=== PATIENT | male | born 2000 | race Caucasian/White ===

== ENCOUNTER 2023-04-24 15:45 | Inpatient (IN) ==
[2023-04-24] MEDS ORDERED: LORazepam 1 MG TAB SL STA (16:39)
[2023-04-24 16:40] LABS: Appearance Urine Clear (Clear); Bilirubin Urine Negative (Negative); Blood Urine Negative (Negative); Color Urine Yellow; Glucose Urine UA Negative (Negative); Ketones Urine Negative (Negative); Leukocyte Esterase Urine Negative (Negative); Nitrite Urine Negative (Negative); Protein Urine Negative (Negative); Specific Gravity Urine 1.018 (1.000-1.030); Urobilinogen Urine Negative (Negative)
--- NOTE | 2023-04-24 16:47 | Emergency Department Note ---
History of Present Illness General Chief complaint: Mental Health Evaluation Stated complaint: MHE, SUICIDAL + HOMICIDAL THOUGHTS/PLANS Time Seen by Provider: 04/24/23 16:07 History of Present Illness Provider complaint: Mental health evaluation 23-year-old male presents emergency department for mental health evaluation. 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 Patient states he has a history of schizoaffective disease and has been having tactile visual hallucinations to cut himself and others. Patient is requesting medications for "hallucinations" Home Medications Medication Instructions Recorded Confirmed Type bupropion HCl 75 mg tablet 75 mg PO DAILY 04/24/23 04/24/23 History mirtazapine 30 mg tablet 30 mg PO HS 04/24/23 04/24/23 History olanzapine 10 mg tablet (Zyprexa) 10 mg PO DAILY 04/24/23 04/24/23 History Allergies Allergy/AdvReac Type Severity Reaction Status Date / Time divalproex sodium Allergy Severe Verified 04/24/23 19:42 [facility] Past Med/Surg History Medical History (Updated 04/24/23 @ 20:01 by Girma Craig MD) Schizoaffective disorder Surgical History (Updated 04/24/23 @ 19:43 by Olinda Cortes PA-C) History of nasal surgery Family History (Updated 04/24/23 @ 19:43 by Olinda Cortes PA-C) Father Mental health disorder Mother Thyroid disorder Social History Smoking Status: Current every day smoker Feels Safe at Home: Yes Physical Exam Vital Signs Vital Signs - 24 hr 04/24/23 15:55 04/24/23 18:00 Temperature 36.8 C Temperature Source Temporal Artery Scan Pulse Rate 92 H Pulse Rate [Finger] 88 Respiratory Rate 20 18 Respiratory Effort / Characteristics Non-Labored Spontaneous Respiratory Depth Normal Respiratory Pattern Regular Blood Pressure 128/88 Blood Pressure [Right Arm] 136/63 Blood Pressure Mean 101 Blood Pressure Mean [Right Arm] 87 Pulse Oximetry 98 97 Oxygen Delivery Method Room Air Room Air Sepsis Recent Fever Within 48 Hours No Sepsis New/Unexplained Change in Mental Status No Sepsis Action Taken by Nursing No Action Required Physical Exam HENT: Exam performed. - Head: Normocephalic and atraumatic. EYES: Conjunctivae and EOM are normal. Right eye exhibits no discharge. Left eye exhibits no discharge. No scleral icterus. NECK: Normal range of motion. Neck supple. No JVD present. CV: Normal rate, regular rhythm, normal heart sounds and intact distal pulses. There is no peripheral edema. Palpable radial pulses bue. PULM/CHEST: Effort normal and breath sounds normal. No respiratory distress. No stridor. no wheezes. no rales. ABD: The abdomen is soft. There is no tenderness. NEURO: Motor and sensation grossly intact. SKIN: Skin is warm and dry. He is not diaphoretic. PSYCH: Bizarre affect. Suicidal ideation. Course Course 160: The patient was evaluated in room A5. A complete history and physical exam was performed 184: Vital signs stable. Labs and imaging are within normal limits with the exception of the patient being positive for COVID. Discussed case with Guillermina senior case manager and the patient is requesting inpatient psychiatric help. No psychiatric facility will admit the patient given he is COVID-positive and the patient cannot go back to [facility] being COVID-positive. Patient will be admitted to this facility medically for psychiatric evaluation. Administered Medications Discontinued Medications Lorazepam (Lorazepam 1 Mg Tab) 1 mg SL NOW STA Stop: 04/24/23 16:40 Last Admin: 04/24/23 17:38 Dose: 1 mg Documented By: NORA Medical Decision Making Laboratory Data Attestation: I reviewed the patient's lab results. 04/24/23 16:44 04/24/23 16:44 Lab Results 04/24/23 04/24/23 04/24/23 Range/Units 16:25 16:44 17:35 WBC 5.93 (4.8-10.8) K/ul RBC 4.98 (4.70-6.10) M/uL Hgb 16.3 (14.0-18.0) g/dl Hct 46.4 (42.0-52.0) % MCV 93.2 (80.0-100.0) fL MCH 32.7 (25.0-34.0) pg MCHC 35.1 (32.0-36.0) g/dL RDW Std Deviation 36.8 (36.4-46.3) fL RDW Coeff of [place] 10.8 L (11.5-14.5) % Plt Count 196 (130-400) K/uL MPV 8.9 L (9.4-12.4) fL Immature Gran % (Auto) 0.2 % Neut % (Auto) 68.2 % Lymph % (Auto) 24.1 % [place] % (Auto) 6.7 % Eos % (Auto) 0.5 % Baso % (Auto) 0.3 % Neut # (Auto) 4.04 (1.40-6.50) K/uL Lymph # (Auto) 1.43 (1.20-3.40) K/uL [place] # (Auto) 0.40 (0.11-0.59) K/uL Eos # (Auto) 0.03 (0.00-0.50) K/uL Baso # (Auto) 0.02 (0.00-0.20) K/uL Immature Gran # (Auto) 0.01 (0.01-0.20) K/uL Sodium 139 (136-145) mmol/L Potassium 3.9 (3.5-5.1) mmol/L Chloride 103 (98-107) mmol/L Carbon Dioxide 27 (21-32) mmol/L Anion Gap 9 (3-11) BUN 14 (6-23) mg/dl Creatinine 0.81 (0.6-1.4) mg/dl Est Cr Clr Drug Dosing 163.7 ml/min Est GFR ( Amer) 145.2 ml/min Est GFR (Non-Af Amer) 125.3 ml/min BUN/Creatinine Ratio 17.3 (10-20) Glucose 111 H (70-99(Fasting)) mg/dl Calcium 9.7 (8.6-10.3) mg/dl Total Bilirubin 0.8 (0.2-1.0) mg/dl AST 37 (13-39) U/L ALT 73 H (7-52) U/L Alkaline Phosphatase 63 (34-104) U/L Total Protein 7.7 (6.0-8.3) gm/dl Albumin 4.9 (3.4-5.0) gm/dl Globulin 2.8 (2.5-4.0) gm/dl Albumin/Globulin Ratio 1.8 (0.9-2) TSH 2.797 (0.300-4.500) uIu/ml Urine Color Yellow Urine Appearance Clear (Clear) Urine pH 8.0 H (4.5-7.5) Ur Specific [place] 1.018 (1.000-1.030) Urine Protein Negative (Negative) Urine Glucose (UA) Negative (Negative) Urine Ketones Negative (Negative) Urine Blood Negative (Negative) Urine Nitrite Negative (Negative) Urine Bilirubin Negative (Negative) Urine Urobilinogen Negative (Negative) Ur Leukocyte Esterase Negative (Negative) Salicylates < 3.0 L (3.0-30) mg/dl Urine Opiates Screen Neg (Neg) Ur Methadone, Qual Neg (Neg) Acetaminophen < 3 L (10-30) ug/ml Urine Barbiturates Neg (Neg) Ur Phencyclidine (PCP) Neg (Neg) U Amphetamin/Meth Scrn Neg (Neg) MDMA (Ecstasy) Screen Neg (Neg) U Benzodiazepines Scrn Neg (Neg) Ur Cocaine Metabolite Neg (Neg) U Marijuana (THC) Screen Neg (Neg) Ethyl Alcohol mg/dL < 10.0 (<10.0) mg/dl SARS-CoV-2, RNA, NAAT POSITIVE A* (NEGATIVE) Imaging Data Attestation: I personally reviewed and interpreted this imaging study as follows: My Impression: CT head: No ICH Radiologist's Impression: Head CT 04/24/23 16:[address] DOSE: 625.8 mGy.cm HISTORY: Altered mental status. Hallucinations. TECHNIQUE: Multiaxial CT images of the head were performed without the use of intravenous contrast. Automated exposure control was utilized for this study. A dose lowering technique was utilized adhering to the principles of ALARA. Comparison: None. Findings: The paranasal sinuses and mastoid air cells are clear. The calvarium and skull base are intact. The ventricles and sulci are within normal limits. There is no mass, hematoma, midline shift, or acute infarct. Impression: No acute intracranial abnormality. ACT 112: Negative or not required by law. Electronically signed by: Fredi Cui M.D. 04/24/2023 5:22 PM [facility] Narrative Vital signs stable. Labs and imaging are within normal limits with the exception of the patient being positive for COVID. Discussed case with Guillermina senior case manager and the patient is requesting inpatient psychiatric help. No psychiatric facility will admit the patient given he is COVID-positive and the patient cannot go back to [facility] being COVID-positive. Patient will be admitted to this facility medically for psychiatric evaluation. Impression & Plan Schizoaffective disorder, Suicidal ideation, Hallucination, SARS-CoV-2 positive Discharge Plan Visit Data Chief Complaint: Mental Health Evaluation Stated Complaint: MHE, SUICIDAL + HOMICIDAL THOUGHTS/PLANS ED Provider: Girma Craig Discharge Problem: Schizoaffective disorder, Suicidal ideation, Hallucination, SARS-CoV-2 positive Patient Disposition: Admitted As Inpatient Forms Stand Alone Forms: [facility], Suicide Prevention Resources Prescriptions Prescriptions: No Action olanzapine [Zyprexa] 10 mg Tablet 10 mg PO DAILY mirtazapine 30 mg Tablet 30 mg PO HS bupropion HCl [Wellbutrin] 75 mg Tablet 75 mg PO DAILY Referrals Referrals: Louie Muro [Primary Care Provider] -
[2023-04-24 17:02] LABS: Basophils # (auto) 0.02 K/uL (0.00-0.20); Basophils % (auto) 0.3 %; Eosinophils # (auto) 0.03 K/uL (0.00-0.50); Eosinophils % (auto) 0.5 %; Hematocrit (blood only) 46.4 % (42.0-52.0); Hemoglobin 16.3 g/dl (14.0-18.0); Immature Granulocytes # (auto) 0.01 K/uL (0.01-0.20); Immature Granulocytes % (auto) 0.2 %; Lymphocytes # (auto) 1.43 K/uL (1.20-3.40); Lymphocytes % (auto) 24.1 %; Mean Corpuscular Hemoglobin 32.7 pg (25.0-34.0); Mean Corpuscular Hgb Conc 35.1 g/dL (32.0-36.0); Mean Corpuscular Volume 93.2 fL (80.0-100.0); Mean Platelet Volume 8.9 fL (9.4-12.4); Monocytes % (auto) 6.7 %; Neutrophils # (auto) 4.04 K/uL (1.40-6.50); Neutrophils % (auto) 68.2 %; Platelet Count 196 K/uL (130-400); RDW Coefficient of Variation 10.8 % (11.5-14.5); RDW Standard Deviation 36.8 fL (36.4-46.3); Red Blood Count 4.98 M/uL (4.70-6.10); White Blood Count 5.93 K/ul (4.8-10.8)
[2023-04-24 17:16] LABS: Amphetamines+Metham, Urine Neg (Neg); Barbiturates, Urine Neg (Neg); Benzodiazepine, Urine Neg (Neg); Cocaine, Urine Neg (Neg); MDMA (Ecstacy), Urine Neg (Neg); Marijuana, Urine Neg (Neg); Methadone, Urine Neg (Neg); Opiate, Urine Neg (Neg); Phencyclidine, Urine Neg (Neg)
[2023-04-24 17:21] LABS: Albumin Globulin Ratio 1.8 (0.9-2); Albumin Level 4.9 gm/dl (3.4-5.0); BUN Creatinine Ratio 17.3 (10-20); Bilirubin,Total 0.8 mg/dl (0.2-1.0); Calcium 9.7 mg/dl (8.6-10.3); Creatinine Clr Calc Pharmacy 163.7 ml/min; Est GFR (African American) 145.2 ml/min; Est GFR (Non-African American) 125.3 ml/min; Globulin 2.8 gm/dl (2.5-4.0); Potassium 3.9 mmol/L (3.5-5.1); Total Protein 7.7 gm/dl (6.0-8.3)
[2023-04-24 17:24] LABS: Acetaminophen < 3 ug/ml (10-30); Salicylate < 3.0 mg/dl (3.0-30)
--- NOTE | 2023-04-24 17:25 | CT Scan Report ---
HEAD CT NONCONTRAST CT DOSE: 625.8 mGy.cm HISTORY: Altered mental status. Hallucinations. TECHNIQUE: Multiaxial CT images of the head were performed without the use of intravenous contrast. A utomated exposure control was utilized for this study. A dose lowering technique was utilized adheri ng to the principles of ALARA. Comparison: None. Findings: The paranasal sinuses and mastoid air cells are clear. The calvarium and skull base are int act. The ventricles and sulci are within normal limits. There is no mass, hematoma, midline shift, or acute infarct. Impression: No acute intracranial abnormality. ACT 112: Negative or not required by law. Electronically signed by: Fredi Cui M.D. 04/24/2023 5:22 PM
[2023-04-24 17:35] LABS: Thyroid Stimulating Hormone 2.797 uIu/ml (0.300-4.500)
--- NOTE | 2023-04-24 19:56 | History & Physical Report ---
Date of Service April 24, 2023 Assessment & Plan (1) Schizoaffective disorder: (2) Suicidal ideation: (3) Hallucination: (4) SARS-CoV-2 positive: Plan This is a 23 yr old M who has a significant PMH of schizoaffective disorder who presents to ED secondary to suicidal ideation. Schizoaffective disorder Suicidal Ideation Hallucination Hallucinogenic abuse admit to medicine 2/ sars cov2 + consult psych continue home psych medications safe tray counselled on cessation of drug use Sars CoV2 + pt does not meet criteria for treatment supportive care isolation precautions anti-tussives Elevated LFT ALT 73 repeat in am. no alcohol abuse Tobacco abuse encourage cessation pt requests Nicorette Dispo: admit to medicine for isolation until MH placement can be established FULL CODE PCP: Pt is from [place], currently @ [facility] Pt was seen and examined in collaboration with Dr. Davenport, please see addendum A total of 52 was spent coordinating, documenting, and providing care for this patient excluding time spent in the performance of separately billed services. This included personally viewing all current laboratories and imaging studies, medication reconciliation, outpatient chart review, and discussion with specialists. History of Present Illness Chief Complaint: Suicidal ideation Primary Care Provider: [facility] This is a 23 yr old M who has a signifnicat PMH of schizoaffective disorder who presents to ED secondary to suicidal ideation. Currently patient is at [facility] recovery facility for hallucinogenic abuse. Patient had been in remission until about 1 month ago when he started using mushrooms that he got from a "dealer." He states he took a significant amount of mushrooms and is continuing to have psychedelic and hallucinogenic effects. He is hallucinating that he is cutting himself and then proceeds to do so. He last hurt himself about 1 month ago. He continues to get these hallucinations and therefore [facility] sent him over for further evaluation. He is aware that he needs mental health treatment. He does not complain of sinus congestion has been ongoing for the last several days. He denies any fever, chills, sweats, lightheadedness, dizziness, chest pain, shortness of breath, nausea, vomiting or abdominal pain. Upon mental health workup he did test positive for SARS-CoV-2. Due to positive COVID test he is unable to be placed to mental health facility and therefore will be admitted to medicine. Allergies Allergy/AdvReac Type Severity Reaction Status Date / Time divalproex sodium Allergy Severe Rash Verified 04/24/23 20:52 [From Depakote] Home Medications Medication Instructions Recorded Confirmed Type bupropion HCl 75 mg tablet 75 mg PO DAILY 04/24/23 04/24/23 History mirtazapine 30 mg tablet 30 mg PO HS 04/24/23 04/24/23 History olanzapine 10 mg tablet (Zyprexa) 10 mg PO DAILY 04/24/23 04/24/23 History Past Med/Surg History Medical History (Updated 04/24/23 @ 20:01 by Girma Craig MD) Schizoaffective disorder Surgical History (Updated 04/24/23 @ 19:43 by Olinda Cortes PA-C) History of nasal surgery Family History (Updated 04/24/23 @ 19:43 by Olinda Cortes PA-C) Father Mental health disorder Mother Thyroid disorder Social History Smoking Status: Current every day smoker Feels Safe at Home: Yes Review of Systems Review of Systems: All systems reviewed & are unremarkable except as noted in HPI & below Physical Exam Physical Exam: Constitutional: WD/WN, vitals as above, NAD, sitting up in bed, pleasant, conversing easily Head: Normocephalic, Atraumatic Eyes: PERRL, conjunctivae normal, anicteric sclerae ENMT: external ear and nose normal, oropharynx normal Neck: trachea midline, no thyromegaly normal visual inspection Respiratory: normal respiratory effort, lungs clear to auscultation, no wheeze, rales, rhonchi. Normal insp/exp effort, no accessory muscle use Cardiovascular: RRR, no murmur, no edema Chest: normal inspection of chest Musculoskeletal: no cyanosis or clubbing, extremities AROM x4 Skin: no rashes, warm and dry normal turgor Neurologic: no face palsy, no dysarthria and moves all extremities Psychiatric: A+Ox3, dysthymic effect Lymphatic: no cervical or axillary lymphadenopathy : deferred Results & Data Results & Data Vital Signs (Past 12 Hours) Vital Signs Temp Pulse Pulse Resp BP BP Pulse Ox 04/24/23 18:00 88 18 136/63 97 04/24/23 15:55 36.8 C 92 H 20 128/88 98 O2 Del Method 04/24/23 18:00 Room Air 04/24/23 15:55 Room Air Laboratory Results Short CBC 04/24/23 Range/Units 16:44 WBC 5.93 (4.8-10.8) K/ul Hgb 16.3 (14.0-18.0) g/dl Hct 46.4 (42.0-52.0) % Plt Count 196 (130-400) K/uL BMP 04/24/23 16:44 Sodium 139 Potassium 3.9 Chloride 103 Carbon Dioxide 27 BUN 14 Creatinine 0.81 Glucose 111 H Calcium 9.7 Liver Function 04/24/23 Range/Units 16:44 Total Bilirubin 0.8 (0.2-1.0) mg/dl AST 37 (13-39) U/L ALT 73 H (7-52) U/L Alkaline Phosphatase 63 (34-104) U/L Albumin 4.9 (3.4-5.0) gm/dl Urine 04/24/23 Range/Units 16:25 Urine Color Yellow Urine Appearance Clear (Clear) Urine pH 8.0 H (4.5-7.5) Ur Specific [place] 1.018 (1.000-1.030) Urine Protein Negative (Negative) Urine Glucose (UA) Negative (Negative) I have independently reviewed and interpreted patient's admitting labs including CBC, CMP, TSH, UA, drug screen. Diagnostic Findings Head CT 04/24/23 16:[address] DOSE: 625.8 mGy.cm HISTORY: Altered mental status. Hallucinations. TECHNIQUE: Multiaxial CT images of the head were performed without the use of intravenous contrast. Automated exposure control was utilized for this study. A dose lowering technique was utilized adhering to the principles of ALARA. Comparison: None. Findings: The paranasal sinuses and mastoid air cells are clear. The calvarium and skull base are intact. The ventricles and sulci are within normal limits. There is no mass, hematoma, midline shift, or acute infarct. Impression: No acute intracranial abnormality. ACT 112: Negative or not required by law. Electronically signed by: Fredi Cui M.D. 04/24/2023 5:22 PM Medications Administered Medication List Discontinued Medications Lorazepam (Lorazepam 1 Mg Tab) 1 mg SL NOW STA Stop: 04/24/23 16:40 Last Admin: 04/24/23 17:38 Dose: 1 mg Documented By: JAM Code Status & VTE Plan Code Status FULL CODE VTE Prophylaxis Plan VTE Prophylaxis will be ordered: Yes Supervising Physician Co-Signing Physician Notes I have seen and examined the patient and have discussed the case with the provider above. I agree with the assessment and plan as stated. 23 yo M with underlying schizoaffective disorder took mushrooms "from a drug dealer" approximately one month ago. He is still reporting hallucinations that are severe and involve suicidal ideations and visions of cutting others. He has a history of cutting in the past per his report. He is remorseful for taking the mushrooms and vows not to do that again. Nasal congestion for a few days, covid +. Physical as above. No covid treatment is needed. Consult psych for evaluation and disposition. Cont 11:1 and safe tray. Issac,
[2023-04-24] MEDS ORDERED: guaiFENesin/DEXTROM SYRUP 200MG/20MG 10ML UDC PO PRN (20:36)
[2023-04-24] MEDS ORDERED: ACETAMINOPHEN 325 MG TAB PO PRN (20:36)
[2023-04-24] MEDS ORDERED: NICOTINE POLACRILEX 2 MG GUM MT PRN (20:36)
[2023-04-24] MEDS: MIRTAZAPINE TAB 15 MG TAB PO SCH (21:19)
[2023-04-25 08:00] LABS: Hematocrit (blood only) 43.5 % (42.0-52.0); Hemoglobin 15.5 g/dl (14.0-18.0); Mean Corpuscular Hemoglobin 32.8 pg (25.0-34.0); Mean Corpuscular Hgb Conc 35.6 g/dL (32.0-36.0); Mean Platelet Volume 8.8 fL (9.4-12.4); Platelet Count 167 K/uL (130-400); RDW Coefficient of Variation 10.9 % (11.5-14.5); RDW Standard Deviation 37.2 fL (36.4-46.3); Red Blood Count 4.73 M/uL (4.70-6.10); White Blood Count 4.36 K/ul (4.8-10.8)
[2023-04-25 08:15] LABS: Albumin Globulin Ratio 1.7 (0.9-2); Albumin Level 4.2 gm/dl (3.4-5.0); Bilirubin,Total 1.2 mg/dl (0.2-1.0); Calcium 8.8 mg/dl (8.6-10.3); Creatinine Clr Calc Pharmacy 140.4 ml/min; Est GFR (African American) 131.9 ml/min; Est GFR (Non-African American) 113.8 ml/min; Globulin 2.5 gm/dl (2.5-4.0); Potassium 4.4 mmol/L (3.5-5.1); Total Protein 6.7 gm/dl (6.0-8.3)
[2023-04-25] MEDS: OLANZapine 10 MG TAB PO SCH (08:46)
[2023-04-25] MEDS: buPROPion HCl 75 MG TABLET PO SCH (08:46)
--- NOTE | 2023-04-25 11:51 | Psychiatric Consultation ---
Date of Consultation April 25, 2023 Impression / Recommendations Impression 23 y/o man with a history of schizoaffective disorder and hallucinogen use who presented with visual and tactile hallucinations of being cut. He says this makes him "think about" cutting himself, by which he means intrusive, repetitive, ego-dystonic thoughts, i.e. obsessions. He is currently experiencing mild auditory hallucinations and no other symptoms. He's very vague and unfocused with significant ambivalence and a range of philosophical preoccupations and pseudoprofundity. He was admitted based on the interpretation of his reports as reflecting suicidal thoughts, while in my opinion they are more consistent with obsessive fears. He clearly worsened after using hallucinogenic mushrooms. Given pt's significant improvement, he may not need to remain hospitalized for long. Substantial improvement on current medication regimen argues in favor of continuing it unchanged. Overall I spent a total of 134 minutes on the floor for this consultation assessment including review of chart records, review of test results, direct evaluation of the patient [id number], counseling the patient, medication education with the patient, risk assessment, discussion with the psychiatric liaison nurse, and documentation in the electronic health record. (1) Schizoaffective disorder: Plan Pt was admitted to the medical service in an isolation room due to positive SARS-CoV-2 screen where he will be followed by the psychiatric consultation service. * continue bupropion 75 mg QAM (reportedly used primarily for AM drowsiness) * continue mirtazapine 30 mg QHS (reportedly primarily for sleep) * continue olanzapine 10 mg, move to HS dosing * psychiatry will continue to follow pt while on the medical service Psych History Identifying Data GISSELLE WATKINS is a 23-year-old M with a history of schizoaffective disorder, admitted on 04/24/2023 for psychosis. Consult is by the hospitalist service for "suicidal ideations". Chief Complaint "I feel so much better". History of Present Illness As part of a thorough review of the available medical records, I have read and and incorporated into my assessment the following note by the ED physician: "23-year-old male presents emergency department for mental health evaluation. Patient is currently at [facility] rehab undergoing treatment for hallucinogen abuse. Patient states he has a history of schizoaffective disease and has been having tactile visual hallucinations to cut himself and others. Patient is requesting medications for "hallucinations"" the following note by the hospitalist: "This is a 23 yr old M who has a signifnicat PMH of schizoaffective disorder who presents to ED secondary to suicidal ideation. Currently patient is at [facility] recovery facility for hallucinogenic abuse. Patient had been in remission until about 1 month ago when he started using mushrooms that he got from a "dealer." He states he took a significant amount of mushrooms and is continuing to have psychedelic and hallucinogenic effects. He is hallucinating that he is cutting himself and then proceeds to do so. He last hurt himself about 1 month ago. He continues to get these hallucinations and therefore [facility] sent him over for further evaluation. He is aware that he needs mental health treatment. He does not complain of sinus congestion has been ongoing for the last several days. He denies any fever, chills, sweats, lightheadedness, dizziness, chest pain, shortness of breath, nausea, vomiting or abdominal pain. Upon mental health workup he did test positive for SARS-CoV-2. Due to positive COVID test he is unable to be placed to mental health facility and therefore will be admitted to medicine." the following note by the ED psychiatric rn case management: "Patient states he is currently inpatient at [facility] due to hallucinogen use. He stated he ate mushrooms a month ago and has been hallucinating off and on since. Patient reports his drugs of choice are THC and mushrooms. Patient states he has been having hallucinations of cutting himself and states he can feel the "cuts" in his neck. He reports he also projects the urge to cut himself into cutting others. Patient reports having suicide attempts in the past. He states his father also had a suicide attempt when patient was 16, and that this caused him to "forget" much of his childhood. Patient has had at least two past inpatient treatment admissions. He is currently taking Remeron, Wellbutrin and Zyprexa. He states he takes the medications as prescribed. Patient is from [place], but was attending school at [facility] where he reports he was doing very well until he ingested the mushrooms. Patient reports a diagnosis of Schizoaffective disorder.He reports no known medical conditions." and the following note by the psychiatric liaison nurse: "Patient seen for initial consult, alert and oriented x 4 - pleasant and lying calmly in bed during assessment - patient's reporting does not completely line up, patient currently denies SI/HI - states he felt like cutting himself earlier but after a dose of ativan those feelings faded, denies hallucinations/delusions but also states he was seeing cuts on other people and that made him feel unsafe, patient states he was at [facility] for dual purpose of mental health treatment and rehab for hallucinogens - he states he was attending school in [place] at an [facility] for spiritual study but was asked to leave to tend to his mental health issues - after taking mushrooms again a month ago he decompensated further and his [place] to check patient into [facility], patient states he has a schizoaffective diagnosis and is able to name his medications - when asked about prior mental health inpatient stays he states "yes about a year ago in [place]" when asked what for he states "rehab" - he then explains that stay was related to "other drug abuses" but when pressed states "yeah like LSD and other hallucinogens. I'm obsessed with them and the insight they give me. But after this last trip I don't know if I want them anymore because I can't recover", does endorse a self-harm history of cutting - last done a month ago, denies access to guns and does agree he wants to return to [facility] once "cleared of covid and feeling better mentally", patient denies any acute ment al health needs at this time as he feels much better. He gave verbal permission to contact his mother." Review of the medical record reveals no previous or outside psychiatric records. Pt. carries diagnosis of schizoaffective disorder. Review of pertinent labs reveals they are noncontributory. A urine toxicology screen was negative for all tested substrates. BAL was <10 mg/dL. Presents with reports of tactile hallucinations of being cut and seeing cuts appear on his body. He adamantly denies that he has any suicidal thoughts and finds these experiences frightening. He has had non-suicidal cutting behavior in the past month, but says that spontaneously experiencing the feeling of being cut is frightening. He also reports that at times when he is preparing food using a knife he has "thoughts of cutting other people". These are very clearly ego-dystonic intrusive thoughts that he might for some reason do something like that. He actually refers to these thoughts as "obsessions". He has had numerous medication trials and reports that the current olanzapine is "working really well" and that "the voices are almost completely gone" for the first time in "a long time". Reports a somewhat peripatetic search for emotional peace and, possibly, spiritual enlightenment. He consulted a [employer]ian teach in [facility] who advised him to take his medication consistently and participate in psychotherapy. He move to [facility] in hopes of living in a [facility] there but was told he should work on his mental health and complete a college degree first. He found meditating to be boring so decided to use some psychedelic mushrooms with a friend, which led to very unpleasant hallucinations that were the reason for the admission to [facility] Pt's mother reports a goal of residential treatment in [place], with an admission to [facility] prior to that for "stabilization". Pt didn't like it there because it was chaotic and emphasizes how much he likes the large isolation room here. He says he'd like to stay here for at least a few weeks before considering next steps. I emphasized that such a plan would not be appropriate and that our goal would be discharge as soon as a safe plan can be constructed. He several times asked me for various bits of life advice despite my repeatedly reminding him that long-term changes are appropriately the province of outpatient treatment. He is not very interested in the [place] program and wonders if perhaps he should return to [place] with his parents. Past Psychiatric History Previous Psych Admissions: at least 3 previous admisstions Allergies Allergy/AdvReac Type Severity Reaction Status Date / Time divalproex sodium Allergy Severe Rash Verified 04/24/23 20:52 [From Depakote] Home Medications Medication Instructions Recorded Confirmed Type bupropion HCl 75 mg tablet 75 mg PO DAILY 04/24/23 04/24/23 History mirtazapine 30 mg tablet 30 mg PO HS 04/24/23 04/24/23 History olanzapine 10 mg tablet (Zyprexa) 10 mg PO DAILY 04/24/23 04/24/23 History Patient History Medical History (Updated 04/25/23 @ 19:54 by Marcello Mari MD) Suicidal ideation Schizoaffective disorder Surgical History History of nasal surgery Family History Father Mental health disorder Mother Thyroid disorder Social History Smoking Status: Current every day smoker Tobacco Type: Cigarettes Second Hand Exposure: No; Do You Dip or Chew Tobacco: No; Tobacco Cessation Education Requested by Patient: Yes Hx Alcohol Use: No Hx Substance Use: Yes Last Used Substance Other:: one month ago Substance Use Type Other:: mushrooms Preferred Language: Slovak Communication Ability: Effective Chinese Language Professor Required: No Beliefs That Will Affect Care: Moravian Moravian Beliefs: Pt would like a chaplan to come see him throughout his stay and Spiritual Spiritual Healthcare Practices: [employer] Current Living Situation: Alone and Other Current Living Situation Comment: [facility] - pt states he does not feel safe there Other Information That Helps Us Care for You: No Feels Safe at Home: No Is there a partner from a previous relationship who is making you feel unsafe now?: No Any Concerns about Your Family Situation: No Would You Like to Speak to Someone About Your Situation: No Safety Concerns: Feels Safe At This Time Assistive Devices: None Physical Exam Psychiatric: Orientation: alert, oriented to person, oriented to place, oriented to time and cooperative (but very vague) Apperance: appropriately dressed, appropriately groomed and appeared stated age Eye Contact: good eye contact Motor Behavior: no abnormal motor movements Affect: + blunted affect Mood: + anxious mood and + dysphoric mood Thought Process: + tangential thought process and + looseness of associations; + thought process not linear or logical Thought Content: + obsessions; no hopelessness Suicidal Thoughts: denies suicidal thoughts, denies suicidal plan and denies suicidal intent Homicidal Thoughts: denies homicidal thoughts Hallucinations: + auditory hallucinations, + visual hallucinations and + tactile hallucinations Cognition: recent memory grossly intact, remote memory grossly intact and language grossly intact; + attention not intact Estimated Intelligence: consistent with education level Insight: + poor insight Judgment: + limited judgement Vital Signs (Past 24 Hours): Last Vital Signs Temp 36.9 C 04/24/23 21:14 Pulse 78 04/25/23 06:26 Resp 16 04/25/23 06:26 BP 119/72 04/25/23 06:26 Pulse Ox 95 04/25/23 06:26 O2 Del Method Room Air 04/25/23 06:26 Exam Statement: Physical exams were performed in the ED and by the admitting hospitalist for the purposes of medical clearance. I accept those physicals as correct and adequate and have incorporated that information into my assessment. Review of Systems Psychiatric: + auditory hallucinations, + visual hallucinations, + tactile hallucinations and + substance abuse; no hopelessness, no suicidal ideation and no homicidal ideation Results & Data (PSY) Medications Administered Bupropion HCl (Bupropion Hcl 75 Mg Tablet) 75 mg PO DAILY SELINA Stop: 05/25/23 08:59 Last Admin: 04/25/23 08:46 Dose: 75 mg Documented By: NORA Mirtazapine (Mirtazapine Tab 15 Mg Tab) 30 mg PO HS [facility] Stop: 05/24/23 20:59 Last Admin: 04/24/23 21:19 Dose: 30 mg Documented By: HARVEY Olanzapine (Olanzapine 10 Mg Tab) 10 mg PO DAILY SELINA Stop: 05/25/23 08:59 Last Admin: 04/25/23 08:46 Dose: 10 mg Documented By: NORA Coding Level of Care Code 88169 [facility] Intl Hosp Care Lvl 3 Diagnoses Schizoaffective disorder F25.9 Time Spent (min) 134
--- NOTE | 2023-04-25 13:52 | Hospitalist Progress Note ---
Date of Service April 25, 2023 Assessment & Plan (1) Schizoaffective disorder: (2) Suicidal ideation: (3) Hallucination: (4) SARS-CoV-2 positive: Plan This is a 23 yr old M who has a significant PMH of schizoaffective disorder who presents to ED secondary to suicidal ideation. Schizoaffective disorder Hallucination Hallucinogenic abuse Patient presented from [facility] with hallucination History of use of psychedelic mushrooms. CT head on admissionno acute finding. Psychiatry on board; appreciate recommendation. Patient currently on Wellbutrin, mirtazapine and olanzapine Sars CoV2 + Patient was found to have COVID-19 infection Does not require any supplemental oxygen. Monitor for now. Tobacco abuse encourage cessation pt requests [facility] Dispo: Patient is medically stable for transfer. Appreciate psychiatry input. FULL CODE PCP: Pt is from [place] Discussed with Patient's mother over the phone. Updated, and answered questions/queries. Please note the above document was generated using voice recognition software. It may contain grammatical, syntax or spelling errors. Any formal questions or concerns about the content, text or information contained within the body of this dictation should be directly addressed to the provider for clarification Admission and Anticipated Discharge Date Admission Date: April 24, 2023 Subjective Patient seen and examined at bedside. He is lying in the bed comfortably; not in any distress. He denies fever, chills, shortness of breath or chest pain. Review of Systems Review of Systems: All systems reviewed & are unremarkable except as noted in Subjective Physical Exam Physical Exam: Constitutional: WD/WN, vitals as above, NAD, sitting up in bed, pleasant, conversing easily Respiratory: normal respiratory effort, lungs clear to auscultation, no wheeze, rales, rhonchi. Normal insp/exp effort, no accessory muscle use Cardiovascular: RRR, no murmur, no edema Vessels: no JVD or carotid bruit Chest: normal inspection of chest Abdomen: normal bowel sounds, soft, nontender, no hepatosplenomegaly Musculoskeletal: no cyanosis or clubbing, extremities motor strength 5/5 Skin: no rashes, warm and dry normal turgor Results & Data Results & Data Vital Signs (Past 12 Hours) Vital Signs Pulse Resp BP Pulse Ox O2 Del Method 04/25/23 06:26 78 16 119/72 95 Room Air
[2023-04-25] MEDS: MIRTAZAPINE TAB 15 MG TAB PO SCH (20:18)
[2023-04-26] MEDS: OLANZapine 10 MG TAB PO SCH (09:41)
[2023-04-26] MEDS: buPROPion HCl 75 MG TABLET PO SCH (09:41)
[2023-04-26] MEDS: FLUTICASONE PROPIONATE NA SPR 16 GM BTL PRN (12:51)
[2023-04-26] MEDS ORDERED: SODIUM CHLORIDE 0.65% NA SOLN 45 ML (OCEAN) ONE (14:39)
--- NOTE | 2023-04-26 14:42 | Hospitalist Progress Note ---
Date of Service April 26, 2023 Assessment & Plan (1) Schizoaffective disorder: (2) Suicidal ideation: (3) Hallucination: (4) SARS-CoV-2 positive: Plan This is a 23 yr old M who has a significant PMH of schizoaffective disorder who presents to ED secondary to suicidal ideation. Schizoaffective disorder Hallucination Hallucinogenic abuse Patient presented from [facility] with hallucination History of use of psychedelic mushrooms. CT head on admissionno acute finding. Patient currently on Wellbutrin, mirtazapine and olanzapine. Psychiatry recommended to continue same. Sars CoV2 + Patient was found to have COVID-19 infection Does not require any supplemental oxygen. Monitor for now. Tobacco abuse encourage cessation pt requests [facility] Dispo: Patient is medically stable for transfer. Appreciate psychiatry input. FULL CODE PCP: Pt is from [place] DVT: ambulation Discussed with Patient's mother over the phone on April 25, 2023. Updated, and answered questions/queries. Please note the above document was generated using voice recognition software. It may contain grammatical, syntax or spelling errors. Any formal questions or concerns about the content, text or information contained within the body of this dictation should be directly addressed to the provider for clarification Admission and Anticipated Discharge Date Admission Date: April 24, 2023 Subjective Patient seen and examined at bedside. Comfortable; not in distress. Reported nasal congestion. Denies fever, chills, chest pain, shortness of breath, abdominal pain or urinary symptoms. No significant overnight events Review of Systems Review of Systems: All systems reviewed & are unremarkable except as noted in Subjective Physical Exam Physical Exam: Constitutional: WD/WN, vitals as above, NAD, sitting up in bed, pleasant, conversing easily Respiratory: normal respiratory effort, lungs clear to auscultation, no wheeze, rales, rhonchi. Normal insp/exp effort, no accessory muscle use Cardiovascular: RRR, no murmur, no edema Vessels: no JVD or carotid bruit Chest: normal inspection of chest Abdomen: normal bowel sounds, soft, nontender, no hepatosplenomegaly Musculoskeletal: no cyanosis or clubbing, extremities motor strength 5/5 Skin: no rashes, warm and dry normal turgor Results & Data Results & Data Vital Signs (Past 12 Hours) Vital Signs Temp Pulse Resp BP Pulse Ox O2 Del Method 04/26/23 08:00 36.9 C 76 18 120/69 95 Room Air
--- NOTE | 2023-04-26 18:55 | Psychiatric Progress Note ---
Date of Service April 26, 2023 Impression / Recommendations Impression 04/26/2023: Pt says he's feeling better, continues to think olanzapine is doing a very good job of suppressing hallucinations. He's still "not having so many of those obsessive thoughts". We've learned that [facility] policy is that patients with known positive SARS-CoV-2 tests must wait 5 days before they can be considered for readmission there. I discussed this with pt, who would like to return there when possible to continue the planned stabilization stay then transfer to a long-term psychiatric residential treatment facility in [place]. 04/25/2023: 23 y/o man with a history of schizoaffective disorder and hallucinogen use who presented with visual and tactile hallucinations of being cut. He says this makes him "think about" cutting himself, by which he means intrusive, repetitive, ego-dystonic thoughts, i.e. obsessions. He is currently experiencing mild auditory hallucinations and no other symptoms. He's very vague and unfocused with significant ambivalence and a range of philosophical preoccupations and pseudoprofundity. He was admitted based on the interpretation of his reports as reflecting suicidal thoughts, while in my opinion they are more consistent with obsessive fears. He clearly worsened after using hallucinogenic mushrooms. Given pt's significant improvement, he may not need to remain hospitalized for long. Substantial improvement on current medication regimen argues in favor of continuing it unchanged. (1) Schizoaffective disorder: Plan * continue bupropion 75 mg QAM (reportedly used primarily for AM drowsiness) * continue mirtazapine 30 mg QHS (reportedly primarily for sleep) * continue olanzapine 10 mg QHS * psychiatry will continue to follow pt while on the medical service * anticipate discharge on 04/29/2023 to [facility] Risk Factors Assessment Do You Have Access To A Gun?: No Interval History Identifying Information GISSELLE WATKINS is a 23-year-old M with a history of schizoaffective disorder, admitted on 04/24/2023 for psychosis. Consult is by the hospitalist service for "suicidal ideations". Chief Complaint "Seems a lot better". Subjective Subjective The patient was seen and assessed and interval progress reviewed in a multidisciplinary team meeting with psychiatric liaison nursing and social work. For details, see the "Impression" section. Overall I spent a total of 55 minutes for this inpatient follow-upconsultation follow-up including review of chart records, review of test results, direct evaluation of the patient [id number], counseling the patient, medication education with the patient, risk assessment, discussion with the psychiatric liaison nurse, donning and doffing droplet precautions PPE, and documentation in the electronic health record. Physical Exam Psychiatric Orientation: alert, oriented to person, oriented to place, oriented to time and cooperative (but very vague) Apperance: appropriately dressed, appropriately groomed and appeared stated age Eye Contact: good eye contact Motor Behavior: no abnormal motor movements Affect: + blunted affect Mood: + anxious mood and + dysphoric mood Thought Process: + tangential thought process and + looseness of associations; + thought process not linear or logical Thought Content: + obsessions; no hopelessness Suicidal Thoughts: denies suicidal thoughts, denies suicidal plan and denies suicidal intent Homicidal Thoughts: denies homicidal thoughts Hallucinations: + auditory hallucinations, + visual hallucinations and + tactile hallucinations Cognition: recent memory grossly intact, remote memory grossly intact and language grossly intact; + attention not intact Estimated Intelligence: consistent with education level Insight: + poor insight Judgment: + limited judgement Vital Signs (Past 24 Hours) Last Vital Signs Temp 36.4 C L 04/26/23 15:54 Pulse 92 H 04/26/23 15:54 Resp 18 04/26/23 15:54 BP 120/74 04/26/23 15:54 Pulse Ox 95 04/26/23 15:54 O2 Del Method Room Air 04/26/23 15:54 Results & Data ([facility]) Current Inpatient Medications Current Inpatient Medications: Current Inpatient Medications Acetaminophen (Acetaminophen 325 Mg Tab) 650 mg PO Q4H PRN PRN Reason: Pain or Fever Stop: 05/24/23 20:35 Bupropion HCl (Bupropion Hcl 75 Mg Tablet) 75 mg PO DAILY SELINA Stop: 05/25/23 08:59 Last Admin: 04/26/23 09:41 Dose: 75 mg Enoxaparin Sodium (Enoxaparin Inj 40 Mg/0.4 Ml Syr) 40 mg SQ QAM SELINA Stop: 05/27/23 08:59 Fluticasone Propionate (Fluticasone Propionate Na Spr 16 Gm Btl) 2 sprays NA Q24H PRN PRN Reason: nasal congestion Stop: 05/24/23 20:35 Last Admin: 04/26/23 12:51 Dose: 2 sprays Guaifenesin/Dextromethorphan (Guaifenesin/Dextrom Syrup 200mg/20mg 10ml Udc) 10 ml PO Q6H PRN PRN Reason: Cough Stop: 05/24/23 20:35 Mirtazapine (Mirtazapine Tab 15 Mg Tab) 30 mg PO HS SELINA Stop: 05/24/23 20:59 Last Admin: 04/25/23 20:18 Dose: 30 mg Nicotine Polacrilex (Nicotine Polacrilex 2 Mg Gum) 1 piece MT PRN PRN PRN Reason: nicotine craving Stop: 05/24/23 20:35 Olanzapine (Olanzapine 10 Mg Tab) 10 mg PO DAILY SELINA Stop: 05/25/23 08:59 Last Admin: 04/26/23 09:41 Dose: 10 mg Mental Health & Subst Abuse Tx Psychiatrist Name of Psychiatrist: [facility]'s
[2023-04-26] MEDS: MIRTAZAPINE TAB 15 MG TAB PO SCH (20:19)
[2023-04-27] MEDS: ENOXAPARIN INJ 40 MG/0.4 ML SYR SQ SCH (09:25)
[2023-04-27] MEDS: buPROPion HCl 75 MG TABLET PO SCH (09:26)
[2023-04-27] MEDS: FLUTICASONE PROPIONATE NA SPR 16 GM BTL PRN (09:26)
[2023-04-27] MEDS: OLANZapine 10 MG TAB PO SCH (09:26)
--- NOTE | 2023-04-27 10:05 | Psychiatric Progress Note ---
Date of Service April 27, 2023 Impression / Recommendations Impression 04/27/2023: Reports no new or worse symptoms. Continues to say that auditory hallucinations are well-controlled. Obsessive thoughts continue but aren't bothering him quite as much. 04/26/2023: Pt says he's feeling better, continues to think olanzapine is doing a very good job of suppressing hallucinations. He's still "not having so many of those obsessive thoughts". We've learned that [facility] policy is that patients with known positive SARS-CoV-2 tests must wait 5 days before they can be considered for readmission there. I discussed this with pt, who would like to return there when possible to continue the planned stabilization stay then transfer to a long-term psychiatric residential treatment facility in [place]. 04/25/2023: 23 y/o man with a history of schizoaffective disorder and hallucinogen use who presented with visual and tactile hallucinations of being cut. He says this makes him "think about" cutting himself, by which he means intrusive, repetitive, ego-dystonic thoughts, i.e. obsessions. He is currently experiencing mild auditory hallucinations and no other symptoms. He's very vague and unfocused with significant ambivalence and a range of philosophical preoccupations and pseudoprofundity. He was admitted based on the interpretation of his reports as reflecting suicidal thoughts, while in my opinion they are more consistent with obsessive fears. He clearly worsened after using hallucinogenic mushrooms. Given pt's significant improvement, he may not need to remain hospitalized for long. Substantial improvement on current medication regimen argues in favor of continuing it unchanged. (1) Schizoaffective disorder: Plan * continue bupropion 75 mg QAM (reportedly used primarily for AM drowsiness) * continue mirtazapine 30 mg QHS (reportedly primarily for sleep) * continue olanzapine 10 mg QHS * psychiatry will continue to follow pt while on the medical service * anticipate discharge on 04/29/2023 to [facility] Suicide Risk Level Suicide Risk Level: Moderate (q15 min suicide checks) (denies suicidal thoughts) Risk Factors Assessment Male: Yes : Yes Health Problems: No Mental Health Diagnoses: Yes Substance Use Disorders: Yes Previous Attempt: No Previous Psychiatric Hospitalization: Yes Hopelessness: No Protective Factors Assessment : No Responsible for Young Children: No Employed: No Supportive Family: Yes Good Rapport with Provider: Yes Interval History Identifying Information GISSELLE WATKINS is a 23-year-old M with a history of schizoaffective disorder, admitted on 04/24/2023 for psychosis. Consult is by the hospitalist service for "suicidal ideations". Pt presented to the ED with psychiatric complaints warranting psychiatric admission but due to positive SARS-CoV-2 screen could not be admitted to the psychiatric unit. Chief Complaint "Not bad". Subjective Subjective The patient was seen and assessed and interval progress reviewed in a multidisciplinary team meeting with the treatment team. For details, see the "Impression" section. Overall I spent a total of 25 minutes for this consultation follow-up including review of chart records, direct evaluation of the patient [id number], counseling the patient, medication education with the patient, risk assessment, donning and doffing PPE for droplet precautions, discussion with the psychiatric liaison nurse, and documentation in the electronic health record. Physical Exam Psychiatric Orientation: alert, oriented to person, oriented to place, oriented to time and cooperative (but very vague) Apperance: appropriately dressed, appropriately groomed and appeared stated age Eye Contact: good eye contact Motor Behavior: no abnormal motor movements Affect: + blunted affect Mood: + anxious mood and + dysphoric mood Thought Process: + tangential thought process and + looseness of associations; + thought process not linear or logical Thought Content: + obsessions; no hopelessness Suicidal Thoughts: denies suicidal thoughts, denies suicidal plan and denies suicidal intent Homicidal Thoughts: denies homicidal thoughts Hallucinations: + auditory hallucinations, + visual hallucinations and + tactile hallucinations Cognition: recent memory grossly intact, remote memory grossly intact and language grossly intact; + attention not intact Estimated Intelligence: consistent with education level Insight: + poor insight Judgment: + limited judgement Vital Signs (Past 24 Hours) Last Vital Signs Temp 36.8 C 04/27/23 08:11 Pulse 70 04/27/23 08:11 Resp 16 04/27/23 08:11 BP 98/60 L 04/27/23 08:11 Pulse Ox 95 04/27/23 08:11 O2 Del Method Room Air 04/27/23 08:11 Results & Data (U) Current Inpatient Medications Current Inpatient Medications: Current Inpatient Medications Acetaminophen (Acetaminophen 325 Mg Tab) 650 mg PO Q4H PRN PRN Reason: Pain or Fever Stop: 05/24/23 20:35 Bupropion HCl (Bupropion Hcl 75 Mg Tablet) 75 mg PO DAILY SELINA Stop: 05/25/23 08:59 Last Admin: 04/27/23 09:26 Dose: 75 mg Enoxaparin Sodium (Enoxaparin Inj 40 Mg/0.4 Ml Syr) 40 mg SQ QAM SELINA Stop: 05/27/23 08:59 Last Admin: 04/27/23 09:25 Dose: Not Given Fluticasone Propionate (Fluticasone Propionate Na Spr 16 Gm Btl) 2 sprays NA Q24H PRN PRN Reason: nasal congestion Stop: 05/24/23 20:35 Last Admin: 04/27/23 09:26 Dose: 2 sprays Guaifenesin/Dextromethorphan (Guaifenesin/Dextrom Syrup 200mg/20mg 10ml Udc) 10 ml PO Q6H PRN PRN Reason: Cough Stop: 05/24/23 20:35 Mirtazapine (Mirtazapine Tab 15 Mg Tab) 30 mg PO HS SELINA Stop: 05/24/23 20:59 Last Admin: 04/26/23 20:19 Dose: 30 mg Nicotine Polacrilex (Nicotine Polacrilex 2 Mg Gum) 1 piece MT PRN PRN PRN Reason: nicotine craving Stop: 05/24/23 20:35 Olanzapine (Olanzapine 10 Mg Tab) 10 mg PO DAILY SELINA Stop: 05/25/23 08:59 Last Admin: 04/27/23 09:26 Dose: 10 mg Mental Health & Subst Abuse Tx Psychiatrist Name of Psychiatrist: [facility]
--- NOTE | 2023-04-27 14:28 | Hospitalist Progress Note ---
Date of Service April 27, 2023 Assessment & Plan (1) Schizoaffective disorder: (2) Suicidal ideation: (3) Hallucination: (4) SARS-CoV-2 positive: Plan This is a 23 yr old M who has a significant PMH of schizoaffective disorder who presents to ED secondary to suicidal ideation. Schizoaffective disorder Hallucination Hallucinogenic abuse Patient presented from [facility] with hallucination History of use of psychedelic mushrooms. CT head on admissionno acute finding. Patient currently on Wellbutrin, mirtazapine and olanzapine. Psychiatry recommended to continue same. Sars CoV2 + Patient was found to have COVID-19 infection Does not require any supplemental oxygen. Monitor for now. Tobacco abuse encourage cessation pt requests [facility] Dispo: Patient is medically stable for transfer. FULL CODE PCP: Pt is from [place] DVT: ambulation Discussed with Patient's mother over the phone on April 25, 2023. Updated, and answered questions/queries. Please note the above document was generated using voice recognition software. It may contain grammatical, syntax or spelling errors. Any formal questions or concerns about the content, text or information contained within the body of this dictation should be directly addressed to the provider for clarification Admission and Anticipated Discharge Date Admission Date: April 24, 2023 Subjective Patient seen and examined at bedside. Comfortable; not in distress. Denies fever, chills, chest pain, shortness of breath, abdominal pain or urinary symptoms. No significant overnight events Review of Systems Review of Systems: All systems reviewed & are unremarkable except as noted in Subjective Physical Exam Physical Exam: Constitutional: WD/WN, vitals as above, NAD, sitting up in bed, pleasant, conversing easily Respiratory: normal respiratory effort, lungs clear to auscultation, no wheeze, rales, rhonchi. Normal insp/exp effort, no accessory muscle use Cardiovascular: RRR, no murmur, no edema Vessels: no JVD or carotid bruit Chest: normal inspection of chest Abdomen: normal bowel sounds, soft, nontender, no hepatosplenomegaly Musculoskeletal: no cyanosis or clubbing, extremities motor strength 5/5 Skin: no rashes, warm and dry normal turgor Results & Data Results & Data Vital Signs (Past 12 Hours) Vital Signs Temp Pulse Resp BP Pulse Ox O2 Del Method 04/27/23 08:11 36.8 C 70 16 98/60 L 95 Room Air
[2023-04-27] MEDS: MIRTAZAPINE TAB 15 MG TAB PO SCH (20:25)
[2023-04-28] MEDS: buPROPion HCl 75 MG TABLET PO SCH (08:04)
[2023-04-28] MEDS: ENOXAPARIN INJ 40 MG/0.4 ML SYR SQ SCH (08:04)
[2023-04-28] MEDS: OLANZapine 10 MG TAB PO SCH (08:04)
--- NOTE | 2023-04-28 12:06 | Psychiatric Progress Note ---
Date of Service April 28, 2023 Impression / Recommendations Impression 04/28/2023: Much broader range of affect today - smiles, chuckles a few times. Eye contact is better as is speech prosody and inflection. He says "the voices are still really well-controlled". Reports no adverse effects of medications. Has been moving away from the plan of returning to [facility] (whence he had been sent with what they interpreted as suicidal thoughts but which were actually obsessions and tactile hallucinations) in favor of attempting a direct transfer to [facility] in [place], [place] ([email or web address]). [facility] had wanted him stabilized psychiatrically first, which is why he was at [facility]. Pt has voiced a desire to go directly to [facility]. This does not appear to be an option. In the service of eventually being able to get to [facility], he is willing to accept readmission to [facility]. 04/27/2023: Reports no new or worse symptoms. Continues to say that auditory hallucinations are well-controlled. Obsessive thoughts continue but aren't bothering him quite as much. 04/26/2023: Pt says he's feeling better, continues to think olanzapine is doing a very good job of suppressing hallucinations. He's still "not having so many of those obsessive thoughts". We've learned that [facility] policy is that patients with known positive SARS-CoV-2 tests must wait 5 days before they can be considered for readmission there. I discussed this with pt, who would like to return there when possible to continue the planned stabilization stay then transfer to a long-term psychiatric residential treatment facility in [place]. 04/25/2023: 23 y/o man with a history of schizoaffective disorder and hallucinogen use who presented with visual and tactile hallucinations of being cut. He says this makes him "think about" cutting himself, by which he means intrusive, repetitive, ego-dystonic thoughts, i.e. obsessions. He is currently experiencing mild auditory hallucinations and no other symptoms. He's very vague and unfocused with significant ambivalence and a range of philosophical preoccupations and pseudoprofundity. He was admitted based on the interpretation of his reports as reflecting suicidal thoughts, while in my opinion they are more consistent with obsessive fears. He clearly worsened after using hallucinogenic mushrooms. Given pt's significant improvement, he may not need to remain hospitalized for long. Substantial improvement on current medication regimen argues in favor of continuing it unchanged. (1) Schizoaffective disorder: Plan * continue bupropion 75 mg QAM (reportedly used primarily for AM drowsiness) * continue mirtazapine 30 mg QHS (reportedly primarily for sleep) * continue olanzapine 10 mg QHS * psychiatry will continue to follow pt while on the medical service * anticipate discharge on 04/29/2023 to [facility] Suicide Risk Level Suicide Risk Level: Moderate (q15 min suicide checks) (denies suicidal thoughts) Risk Factors Assessment Male: Yes : Yes Do You Have Access To A Gun?: No Health Problems: No Mental Health Diagnoses: Yes Substance Use Disorders: Yes Previous Attempt: No Previous Psychiatric Hospitalization: Yes Hopelessness: No Protective Factors Assessment : No Responsible for Young Children: No Employed: No Supportive Family: Yes Good Rapport with Provider: Yes Interval History Identifying Information GISSELLE WATKINS is a 23-year-old M with a history of schizoaffective disorder, admitted on 04/24/2023 for psychosis. Consult is by the hospitalist service for "suicidal ideations". Pt presented to the ED with psychiatric complaints warranting psychiatric admission but due to positive SARS-CoV-2 screen could not be admitted to the psychiatric unit. Chief Complaint "Pretty good, really". Subjective Subjective The patient was seen and assessed and interval progress reviewed in a multidisciplinary team meeting with the treatment team and psychiatric liaison. For details, see the "Impression" section. Overall I spent a total of 65 minutes for this consultation follow-up including review of chart records, review of test results, donning and doffing PPE for droplet precautions, direct evaluation of the patient [id number], counseling the patient, medication education with the patient, risk assessment, discussion during interdisciplinary treatment rounds and with the psychiatric liaison nurse, and documentation in the electronic health record. Physical Exam Psychiatric Orientation: alert, oriented to person, oriented to place, oriented to time and cooperative Apperance: appropriately dressed, appropriately groomed and appeared stated age Eye Contact: good eye contact Motor Behavior: no abnormal motor movements Affect: + constricted affect (mildly) Mood: + anxious mood and + dysphoric mood Thought Process: clear/coherent thought process and + tangential thought process Thought Content: + obsessions; no hopelessness Suicidal Thoughts: denies suicidal thoughts, denies suicidal plan and denies suicidal intent Homicidal Thoughts: denies homicidal thoughts Hallucinations: + auditory hallucinations, + visual hallucinations and + tactile hallucinations Cognition: recent memory grossly intact, remote memory grossly intact and language grossly intact; + attention not intact Estimated Intelligence: consistent with education level Insight: + fair insight Judgment: + fair judgement Vital Signs (Past 24 Hours) Last Vital Signs Temp 36.6 C 04/28/23 08:02 Pulse 97 H 04/28/23 08:02 Resp 16 04/28/23 08:02 BP 132/78 04/28/23 08:02 Pulse Ox 95 04/28/23 08:02 O2 Del Method Room Air 04/28/23 09:19 Results & Data ([facility]) Current Inpatient Medications Current Inpatient Medications: Current Inpatient Medications Acetaminophen (Acetaminophen 325 Mg Tab) 650 mg PO Q4H PRN PRN Reason: Pain or Fever Stop: 05/24/23 20:35 Bupropion HCl (Bupropion Hcl 75 Mg Tablet) 75 mg PO DAILY SELINA Stop: 05/25/23 08:59 Last Admin: 04/28/23 08:04 Dose: 75 mg Enoxaparin Sodium (Enoxaparin Inj 40 Mg/0.4 Ml Syr) 40 mg SQ QAM SELINA Stop: 05/27/23 08:59 Last Admin: 04/28/23 08:04 Dose: Not Given Fluticasone Propionate (Fluticasone Propionate Na Spr 16 Gm Btl) 2 sprays NA Q24H PRN PRN Reason: nasal congestion Stop: 05/24/23 20:35 Last Admin: 04/27/23 09:26 Dose: 2 sprays Guaifenesin/Dextromethorphan (Guaifenesin/Dextrom Syrup 200mg/20mg 10ml Udc) 10 ml PO Q6H PRN PRN Reason: Cough Stop: 05/24/23 20:35 Mirtazapine (Mirtazapine Tab 15 Mg Tab) 30 mg PO HS SELINA Stop: 05/24/23 20:59 Last Admin: 04/27/23 20:25 Dose: 30 mg Nicotine Polacrilex (Nicotine Polacrilex 2 Mg Gum) 1 piece MT PRN PRN PRN Reason: nicotine craving Stop: 05/24/23 20:35 Olanzapine (Olanzapine 10 Mg Tab) 10 mg PO DAILY SELINA Stop: 05/25/23 08:59 Last Admin: 04/28/23 08:04 Dose: 10 mg Mental Health & Subst Abuse Tx Psychiatrist Name of Psychiatrist: [facility]
--- NOTE | 2023-04-28 14:31 | Hospitalist Progress Note ---
Date of Service April 28, 2023 Assessment & Plan (1) Schizoaffective disorder: (2) Suicidal ideation: (3) Hallucination: (4) SARS-CoV-2 positive: Plan This is a 23 yr old M who has a significant PMH of schizoaffective disorder who presents to ED secondary to suicidal ideation. Schizoaffective disorder Hallucination Hallucinogenic abuse Patient presented from [facility] with hallucination History of use of psychedelic mushrooms. CT head on admissionno acute finding. Patient currently on Wellbutrin, mirtazapine and olanzapine. Psychiatry recommended to continue same. Sars CoV2 + Patient was found to have COVID-19 infection Does not require any supplemental oxygen. Monitor for now. Tobacco abuse encourage cessation pt requests Nicorette Dispo: Patient is medically stable for transfer. Appreciate psych liaison and case management assisting for placement. FULL CODE PCP: Pt is from [place] DVT: ambulation Discussed with Patient's mother over the phone on April 25, 2023. Updated, and answered questions/queries. Please note the above document was generated using voice recognition software. It may contain grammatical, syntax or spelling errors. Any formal questions or concerns about the content, text or information contained within the body of this dictation should be directly addressed to the provider for clarification Admission and Anticipated Discharge Date Admission Date: April 24, 2023 Subjective Patient seen and examined at bedside. Denies fever, chills, chest pain, shortness of breath, abdominal pain or urinary symptoms. No significant overnight events Nasal congestion has improved Review of Systems Review of Systems: All systems reviewed & are unremarkable except as noted in Subjective Physical Exam Physical Exam: Constitutional: WD/WN, vitals as above, NAD, sitting up in bed, pleasant, conversing easily Respiratory: normal respiratory effort, lungs clear to auscultation, no wheeze, rales, rhonchi. Normal insp/exp effort, no accessory muscle use Cardiovascular: RRR, no murmur, no edema Vessels: no JVD or carotid bruit Chest: normal inspection of chest Abdomen: normal bowel sounds, soft, nontender, no hepatosplenomegaly Musculoskeletal: no cyanosis or clubbing, extremities motor strength 5/5 Skin: no rashes, warm and dry normal turgor Results & Data Results & Data Vital Signs (Past 12 Hours) Vital Signs Temp Pulse Resp BP Pulse Ox O2 Del Method 01/08/24 09:19 Room Air 04/28/23 08:02 36.6 C 97 H 16 132/78 95 Room Air
[2023-04-28] MEDS: FLUTICASONE PROPIONATE NA SPR 16 GM BTL PRN (20:14)
[2023-04-28] MEDS: MIRTAZAPINE TAB 15 MG TAB PO SCH (20:15)
[2023-04-29] MEDS: ENOXAPARIN INJ 40 MG/0.4 ML SYR SQ SCH ×2 (08:34→08:36)
[2023-04-29] MEDS: OLANZapine 10 MG TAB PO SCH (08:35)
[2023-04-29] MEDS: buPROPion HCl 75 MG TABLET PO SCH (08:35)
--- NOTE | 2023-04-29 13:39 | Discharge Summary ---
Date of Service April 29, 2023 Admission HPI Per Admitting Provider This is a 23 yr old M who has a signifnicat PMH of schizoaffective disorder who presents to ED secondary to suicidal ideation. Currently patient is at [facility] recovery facility for hallucinogenic abuse. Patient had been in remission until about 1 month ago when he started using mushrooms that he got from a "dealer." He states he took a significant amount of mushrooms and is continuing to have psychedelic and hallucinogenic effects. He is hallucinating that he is cutting himself and then proceeds to do so. He last hurt himself about 1 month ago. He continues to get these hallucinations and therefore [facility] sent him over for further evaluation. He is aware that he needs mental health treatment. He does not complain of sinus congestion has been ongoing for the last several days. He denies any fever, chills, sweats, lightheadedness, dizziness, chest pain, shortness of breath, nausea, vomiting or abdominal pain. Upon mental health workup he did test positive for SARS-CoV-2. Due to positive COVID test he is unable to be placed to mental health facility and therefore will be admitted to medicine. Admission Exam Per Admitting Provider Constitutional: WD/WN, vitals as above, NAD, sitting up in bed, pleasant, conversing easily Head: Normocephalic, Atraumatic Eyes: PERRL, conjunctivae normal, anicteric sclerae ENMT: external ear and nose normal, oropharynx normal Neck: trachea midline, no thyromegaly normal visual inspection Respiratory: normal respiratory effort, lungs clear to auscultation, no wheeze, rales, rhonchi. Normal insp/exp effort, no accessory muscle use Cardiovascular: RRR, no murmur, no edema Chest: normal inspection of chest Musculoskeletal: no cyanosis or clubbing, extremities AROM x4 Skin: no rashes, warm and dry normal turgor Neurologic: no face palsy, no dysarthria and moves all extremities Psychiatric: A+Ox3, dysthymic effect Lymphatic: no cervical or axillary lymphadenopathy : deferred Principal Diagnosis Suicidal ideation COVID-19 infection Discharge Exam Constitutional: WD/WN, vitals as above, NAD, sitting up in bed, pleasant, conversing easily Respiratory: normal respiratory effort, lungs clear to auscultation, no wheeze, rales, rhonchi. Normal insp/exp effort, no accessory muscle use Cardiovascular: RRR, no murmur, no edema Vessels: no JVD or carotid bruit Chest: normal inspection of chest Abdomen: normal bowel sounds, soft, nontender, no hepatosplenomegaly Musculoskeletal: no cyanosis or clubbing, extremities motor strength 5/5 Skin: no rashes, warm and dry normal turgor Discharge Data Allergies Allergy/AdvReac Type Severity Reaction Status Date / Time divalproex sodium Allergy Severe Rash Verified 04/24/23 20:52 [From Depakote] Consultations 04/24/23 18:48 ED Decision to Admit Stat 04/24/23 20:36 Consult Psychiatry Routine 04/24/23 21:46 Consult Behavioral Health Liaison Routine Ordered Studies 04/24/23 16:40 CT head/brain wo con Stat Hospital Course (1) Schizoaffective disorder: (2) Suicidal ideation: (3) Hallucination: (4) SARS-CoV-2 positive: Plan This is a 23 yr old M who has a significant PMH of schizoaffective disorder who presents to ED secondary to suicidal ideation. Schizoaffective disorder Hallucination Hallucinogenic abuse Patient presented from [facility] recovery facility with hallucination History of use of psychedelic mushrooms. CT head on admissionno acute finding. Patient currently on Wellbutrin, mirtazapine and olanzapine. Psychiatry recommended to continue same. No thoughts of suicidal ideation at discharge. Sars CoV2 + Patient was found to have COVID-19 infection Asymptomatic Patient [facility]. Please note the above document was generated using voice recognition software. It may contain grammatical, syntax or spelling errors. Any formal questions or concerns about the content, text or information contained within the body of this dictation should be directly addressed to the provider for clarification Total Time Total Time Spent Total Time Spent (In Minutes): 35 Total Time Includes: Examination of the Patient, Discharge Planning, Medication Reconciliation, Communication With Other Providers and Other Discharge Plan Discharge Items Patient Disposition: Transfer Behavioral Health Fac Reason For Visit: COVID +, SI Discharge Diagnosis: COVID-19 infection Activity: Resume your previous activity Non-emergency contact: Primary Care Provider Call non-emergency contact if: you have any medication questions and your symptoms worsen Follow-up/Referrals: [facility] [Primary Care Provider] - Diet: Regular Addtl Attending Provider Instructions: You were admitted to the hospital with COVID-19 infection. You remained in room air during the hospitalization; no supplemental oxygen was required. Please follow-up with your primary care doctor after discharge from the rehab. Pending Studies at Discharge: No Stand-Alone Forms: My [facility] Medications and DC Order Prescriptions: Continued olanzapine [Zyprexa] 10 mg Tablet 10 mg PO DAILY mirtazapine 30 mg Tablet 30 mg PO HS bupropion HCl 75 mg Tablet 75 mg PO DAILY Discharge Orders: Discharge Order (Routine); Ordered 04/29/23 Ordered By: Dioni Roque/Other Patient Handouts: COVID-19 Vaccines and Prevention Admission Data Admit Date/Time: 04/24/23 19:07 Attending Provider: Dioni Galicia Admit Provider: Lorin Davenport Primary Care Provider: [facility] Other Providers: Lorin Davenport; Pretty Gamboa; Shabana Garcia; Edward Coreas; Marcello Mari Other Interventions: Discharge Summary Assessment (RN) Last Done: 04/29/23 13:31
== END 2023-04-29 14:48 | disposition alcohol treatment (31) | DRG 178 ==
LOC: ED 15:45 → SUATTDRO 19:07 → EDINP 19:07 → 3N 04-25 15:50